=== PATIENT | female | born 1960 | race Caucasian/White ===

== ENCOUNTER 2022-12-16 17:22 | Outpatient (CLI) | payer OTHER, SELFPAY ==
--- NOTE | ~2022-12-16 | XR_ITS ---
EXAM: XR wrist LT min 3V DATE: 12/16/2022 17:40 HISTORY: RHEUMATOID ARTHRITIS LEFT WRIST . COMPARISON: None available. FINDINGS: Normal mineralization. No fracture or dislocation. No lytic or blastic lesion. Mild degene rative change. No erosion or periosteal change. Soft tissues within normal limits. IMPRESSION: Unremarkable left wrist radiographs. No radiographic findings of inflammatory arthropathy . Reviewed, dictated and finalized at location K. IMPRESSION: Unremarkable left wrist radiographs. No radiographic findings of in flammatory arthropathy.
== END 2022-12-16 17:23 | disposition home or self-care (01) ==
LOC: ANHIMG 17:25
PROVIDERS: Visit Provider Plastic Surgery
DX: M06.832 Other specified rheumatoid arthritis, left wrist (principal)
CPT/HCPCS: 73110